=== PATIENT | female | born 1945 | race Caucasian/White ===

== ENCOUNTER → 2016-11-21 | Outpatient (CLI) | payer MEDICARE, BC ==
[~2016-11-21] MED LIST: ACETAMINOPHEN PO; ALPRAZOLAM PO; ASPIRIN PO; NORVASC PO; TOPROL XL PO
--- NOTE | ~2016-11-21 | MR17 ---
[facility] A Service of [facility] & [facility] RADIOLOGY TEXT RESULTS PATIENT: ROSEMARIE DOOLEY LOCATION: CMRI : 45 UNIT #: [id number] AGE: [address]: Kristan Barth MD SEX: F ORDER DR: [id number] [facility] [address] [place], [place] [address] [id number] MR#: [id number] Acc #: [id number] NAME: ROSEMARIE DOOLEY : 1945 SEX: F STUDY DATE/TIME: 11/21/2016 9:02 UNIT: [facility] ROOM: STUDY DESCRIPTION: MR Brain WWo Contrast Attending Physician: Kristan Barth M.D. Referring Physician: Kristan Barth M.D. Ordering Physician: Kristan Barth M.D. Primary Care Physician: Kristan Barth M.D. MRI CENTER REPORT This report is preliminary unless electronic signature is present. EXAM MRI of the brain with and without contrast dated 11/21/2016. COMPARISON None. HISTORY Extreme paranoia for 3 weeks. She thinks that people are following her. History of head trauma last week. Patient hit forehead on a ladder. TECHNIQUE Multisequence multiplanar imaging of the brain was obtained with and without contrast. GFR measured 43. 20 mL of MultiHance was administered intravenously. FINDINGS No acute stroke, enhancing mass, mass effect, midline shift or hydrocephalus. Punctate small few hyperintense T2-signal lesions are noted in the subcortical white matter particularly in bifrontal and right parietal lobes. They measure less than 5 mm and are probably about 5-6 in number. Vascular flow voids of the major cerebral arteries and dural venous sinuses are not obstructed in these thicker slices. Mild S-shaped nasal septal deviation is seen. Paranasal sinuses, orbits with the ocular structures and mastoids are unremarkable. Thick slices through the sella with the pituitary gland and pineal region are within normal limits. Mild degenerative changes are noted in the cervical spine. IMPRESSION 1. Nonenhancing nonspecific few small hyperintense T2-signal lesions are noted in the white matter along the subcortical region. It is probably related to mild chronic microvascular ischemic change or migraine based on age and statistics. 2. The brain appears otherwise significantly healthy in this 71-year-old STS. [facility] A Service of [facility] & [facility] RADIOLOGY TEXT RESULTS PATIENT: ROSEMARIE DOOLEY LOCATION: CMRI : 45 UNIT #: [id number] AGE: [address]: Kristan Barth MD SEX: F ORDER DR: female. Dictated by... Nitin Ruiz M.D. THIS IS AN ELECTRONICALLY VERIFIED REPORT Nitin Ruiz M.D. at 11/21/2016 3:11 PM CPR/juan carlos TD: 11/21/2016 15:00 JOB #: [id number] MRI CENTER REPORT COPY
[2016-11-21 08:55] LABS: POC - CREATININE 1.3 mg/dL (0.44-1.03)
== END | disposition home or self-care (01) ==
LOC: CMRI 08:26
PROVIDERS: Family Medicine
DX: R41.82 Altered mental status, unspecified (principal); F22 Delusional disorders; G93.89 Other specified disorders of brain
CPT/HCPCS: 70553; 82565; A9577